=== PATIENT | male | born 1965 | race Caucasian/White ===

== ENCOUNTER 2017-12-26 12:35 | Observation (INO) | payer OTHER ==
--- NOTE | 2017-12-26 12:53 | PDOC ---
History of Present Illness - General Chief Complaint: Wheezing Stated Complaint: SOB Time Seen by Provider: 12/26/17 12:39 History Source: Patient Exam Limitations: No Limitations - History of Present Illness Initial Comments: 12/26/17 14:44 Mr. Bhatti is 52 yo M with a hx of HIV and DM presenting to the emergency department BIBA from his PCP with SOB with wheezing. He states he has had SOB, similar to his asthma exacerbations in the past (last one 3 months ago, 3 total this year) after he smoked marijuana Tuesday afternoon. He states he used his albuterol 4x yesterday with partial relief. En route, he was given 1 combivent and 10 mg dexamethasone. His last PCP visit was 1 month ago. Denies: fever, SOB , chest pain, throat pain, ear ache, abdominal pain, diarrhea, nausea and vomiting, and dysuria. Pmhx: HIV and asthma Shx: None Medications: HIV meds (unknown which ones to patient), albuterol Allergies: None Social: 1/4 pack per day, social drinker, and former IVDA 30 years ago. 12/26/17 14:46 Past History - Past Medical History Allergies/Adverse Reactions: Allergies Allergy/AdvReac Type Severity Reaction Status Date / Time No Known Allergies Allergy Verified 12/26/17 13:16 Home Medications: Ambulatory Orders Lactose-Reduced Food [Ensure Liquid] 237 ml PO TID #96 liquid 10/05/17 Albuterol 0.083% Nebulizer Kendal [Ventolin 0.083% Nebulizer Soln -] 1 neb NEB Q4H #1 box 10/19/17 Albuterol Sulfate [Ventolin -] 2 mg PO TID #21 tablet 10/19/17 Darunavir Ethanolate [Prezista -] 800 mg PO DAILY #30 tablet 10/19/17 Bacitracin - [Bacitracin Topical Ointment -] 1 applic TD BID #1 tube 11/16/17 Mirtazapine [Remeron -] 1 tablet PO HS #30 tablet MDD 1 12/08/17 Clotrimazole [Lotrimin 1% Cream -] 1 applic TP BID #1 tube 12/13/17 Diphenhydramine HCl [Benadryl -] 25 mg PO Q8H PRN #30 capsule MDD 3 12/13/17 Elviteg/Cob/Emtri/Tenof Alafen [Genvoya Tablet] 1 each PO DAILY #30 tablet 12/23 Anemia: No Asthma: Yes Cancer: No Cardiac Disorders: No CVA: No COPD: No CHF: No Dementia: No Diabetes: No GI Disorders: No Disorders: No HTN: No Hypercholesterolemia: No Kidney Stones: Yes (optd) Liver Disease: No Seizures: No Thyroid Disease: No - Surgical History Abdominal Surgery: No Appendectomy: No Cardiac Surgery: No Cholecystectomy: No Lung Surgery: No Neurologic Surgery: No Orthopedic Surgery: No - Reproductive History Testicular Surgery: No - Suicide/Smoking/Psychosocial Hx Smoking History: Current every day smoker Have you smoked in the past 12 months: Yes Number of Cigarettes Smoked Daily: 20 If you are a former smoker, when did you quit?: 10 Cigars Per Day: 0 Hx Alcohol Use: Yes Drug/Substance Use Hx: Yes Substance Use Type: Cocaine Hx Substance Use Treatment: Yes ED Treatment Course - LABORATORY CBC & Chemistry Diagram: 12/26/17 13:25 12/26/17 13:25 Medical Decision Making - Medical Decision Making 12/26/17 14:51 Mr. Bhatti is a 52 yo M with a hx of HIV and asthma who presents to the ED with asthma exacerbation. Given hx and PE, likely an asthma exacerbation etiology infectious vs reactive. Initial vitals: Initial Vital Signs Temp Pulse Resp BP Pulse Ox 98.4 F 67 18 113/90 98 12/26/17 12:40 12/26/17 12:40 12/26/17 12:40 12/26/17 12:40 12/26/17 12:40 Work up: Laboratory Results - last 24 hr 12/26/17 12/26/17 13:25 13:25 WBC 4.1 RBC 5.23 Hgb 15.2 Hct 45.8 MCV 87.6 MCH 29.0 MCHC 33.1 RDW 13.7 Plt Count 206 D MPV 8.0 Absolute Neuts (auto) 1.9 Neutrophils % 46.3 Lymphocytes % 40.4 H Monocytes % 7.0 Eosinophils % 5.6 H D Basophils % 0.7 Nucleated RBC % 0 Sodium 140 Potassium 4.8 D Chloride 109 H Carbon Dioxide 28 Anion Gap 3 L BUN 17 Creatinine 1.0 Creat Clearance w eGFR > 60 Random Glucose 101 D Calcium 8.6 Total Bilirubin 0.2 AST 29 ALT 32 D Alkaline Phosphatase 64 Total Protein 7.8 Albumin 3.7 Given 3 amps once of duoneb in the ED. O2 sat at 2:45 pm on 5 liters nasal canula is 93%. Total meds given up to this point (3pm): 1 combivent, 3 amps duoneb, 10 mg dexamethasone, magnesium 2grams. *DC/Admit/Observation/Transfer Diagnosis at time of Disposition: Asthma Qualifiers: Asthma severity: moderate Asthma persistence: unspecified Asthma complication type: with acute exacerbation Qualified Code(s): J45.901 - Unspecified asthma with (acute) exacerbation - Discharge Dispostion Decision to Admit order: Yes - Referrals Referrals: Jordyn Taylor MD [Primary Care Provider] - - Patient Instructions - Post Discharge Activity
[2017-12-26] MEDS ORDERED: ALBUTEROL SO4 2.5/IPRATROPIUM 0.5 INH SOL 3 ML VIAL.NEB. NEB ONE ×3 (13:16→16:22)
[2017-12-26] MEDS ORDERED: MAGNESIUM SULF 50% (8.12 MEQ/2 ML-1 GM VIAL) IVPB ONE (13:30)
[2017-12-26 13:32] LABS: BASO % 0.7 % (0-2.0); EOS % 5.6 % (0-4.5); HEMATOCRIT 45.8 % (35.4-49); HEMOGLOBIN 15.2 GM/dL (11.7-16.9); LYMPH % 40.4 % (8-40); MCHC 33.1 g/dl (32.0-35.9); MEAN CELL VOLUME 87.6 fl (80-96); NEUT % 46.3 % (42.8-82.8); PLATELET COUNT 206 K/MM3 (134-434); RBC 5.23 M/mm3 (4.00-5.60); RDW 13.7 % (11.9-15.9); WHITE BLOOD COUNT 4.1 K/mm3 (4.0-10.0)
[2017-12-26] MEDS ORDERED: MAGNESIUM 1GM/D5W - 2 GM/200 ML IVPB IVPB ONE (13:41)
[2017-12-26 14:07] LABS: ALBUMIN 3.7 g/dl (3.4-5.0); ALK PHOS 64 U/L (45-117); ANION GAP 3 (8-16); BILIRUBIN,TOTAL 0.2 mg/dL (0.2-1.0); BLOOD UREA NITROGEN 17 mg/dL (7-18); CALCIUM 8.6 mg/dL (8.5-10.1); CHLORIDE 109 mmol/L (98-107); CO2 28 mmol/L (21-32); GLUCOSE,RANDOM 101 mg/dL (74-106); POTASSIUM 4.8 mmol/L (3.5-5.1); SGOT/AST 29 U/L (15-37); SGPT/ALT 32 U/L (12-78); SODIUM 140 mmol/L (136-145); TOT PROT 7.8 g/dl (6.4-8.2)
--- NOTE | 2017-12-26 14:37 | PDOC ---
Attending Attestation - Resident Resident Name: PrincessRafa - ED Attending Attestation I have performed the following: I have examined & evaluated the patient, The case was reviewed & discussed with the resident, I agree w/resident's findings & plan, Exceptions are as noted - HPI HPI: 12/26/17 14:18 52 year old M c/ hx of HIV (reportedly undetectable VL), on medications, asthma (prior hospitalizations) presents with asthma exacerbation. Pt reported that he smoked marijuana 3 days ago (reportedly 1st time). Since then, he has been having difficulty breathing and wheezing but no fevers or cough. Denies chest pain. Pt saw his doctor who sent the patient to the ER. EMS had give duonebs and decadron prior to arrival. - Physicial Exam PE: 12/26/17 14:37 GENERAL: Awake, alert, and fully oriented, in no acute distress HEAD: No signs of trauma EYES: EOMI, sclera anicteric, conjunctiva clear ENT: Auricles normal inspection, hearing grossly normal, nares patent, oropharynx clear without exudates. Moist mucosa NECK: Normal ROM, supple LUNGS: Diffuse expiratory wheezing bilaterally and tight breath sounds HEART: Regular rate and rhythm, normal S1 and S2, no murmurs, rubs or gallops EXTREMITIES: Normal range of motion, no edema. No clubbing or cyanosis. No cords, erythema, or tenderness NEUROLOGICAL: Cranial nerves II through XII grossly intact. Normal speech, normal gait SKIN: Warm, Dry, normal turgor, no rashes or lesions noted. - Medical Decision Making 12/26/17 14:43 Vital Signs Temp Pulse Resp BP Pulse Ox 98.1 F 89 18 141/70 98 12/26/17 13:47 12/26/17 13:47 12/26/17 13:47 12/26/17 13:47 12/26/17 13:47 Hx of HIV with asthma exacerbation. Noted to have hypoxia on RA (to high 80s). Duonebs, steroids, IV magnesium. Chest xray to r/o PNA Admit. Heart Score/ECG Review #1 ECG reviewed & interpreted by me at: 12:50 12/26/17 14:17 NSR 59, no std/maria alejandra, normal axis, normal intervals, QTC 417 msec
[2017-12-26 15:22] LABS: MAGNESIUM 2.1 mg/dL (1.8-2.4)
--- NOTE | 2017-12-26 16:18 | HP ---
CHIEF COMPLAINT: sob, cough PCP: Dr. Smiley HISTORY OF PRESENT ILLNESS: Pt is a 52 y/o M with PMH asthma, HIV, IVDA who presented with complaint of sob and wheezing since Tue. Pt states that on Fri night he went to a alliance party and smoked some marijuana (pt states this is unusual for him) and snorted cocaine ( usually uses every 3 days or so), and since that time has had cough, sob. Cough is nonproductive and symptoms have been resistant to both his inhaler (normally uses 2-3 times per year) and home nebulizer. Pt went to see his PCP today. Per notes, PCP felt pt was significantly short of breath and was wheezing and sent him to ED. En route to ED, pt received Combivent, and decadron. In ED, pt got nebs and Magnesium, which pt states have helped him a lot. Pt denies having had fever, chills, nausea, vomiting, diarrhea, sick contacts, travel. Pt has never been intubated. His last asthma exacerbation was 4 months ago and he states he has been hospitalized for this before. He states he usually gets exacerbations roughly 3 times per year. Note that prior notes suggest PMH of DM. Pt states he was told once he might be diabetic but was later told he is not. He does not take any diabetes medications. ER course was notable for: (1) pt reportedly hypoxic to 88% prior to nebs and O2 nasal cannula. At 98% with treatment (2) CXR unremarkable (3) Recent Travel: denies PAST MEDICAL HISTORY: HIV, asthma PAST SURGICAL HISTORY: Social History: Smoking: active smoker. 3-4 cig / day x 20 years Alcohol: social drinker Drugs: active drug user. Cocaine ever 3 days (last use Tue), rarely marijuana. Hx IVDA 30 y/a Family History: denies Allergies No Known Allergies Allergy (Verified 12/26/17 13:16) HOME MEDICATIONS: Home Medications Medication Instructions Recorded Lactose-Reduced Food [Ensure 237 ml PO TID #96 liquid 10/05/17 Liquid] Albuterol 0.083% Nebulizer Kendal 1 neb NEB Q4H #1 box 10/19/17 [Ventolin 0.083% Nebulizer Soln -] Albuterol Sulfate [Ventolin -] 2 mg PO TID #21 tablet 10/19/17 Darunavir Ethanolate [Prezista -] 800 mg PO DAILY #30 tablet 10/19/17 Bacitracin - [Bacitracin Topical 1 applic TD BID #1 tube 11/16/17 Ointment -] Mirtazapine [Remeron -] 1 tablet PO HS #30 tablet MDD 1 12/08/17 Clotrimazole [Lotrimin 1% Cream -] 1 applic TP BID #1 tube 12/13/17 Diphenhydramine HCl [Benadryl -] 25 mg PO Q8H PRN #30 capsule MDD 3 12/13/17 Elviteg/Cob/Emtri/Tenof Alafen 1 each PO DAILY #30 tablet 12/23/17 [Genvoya Tablet] REVIEW OF SYSTEMS CONSTITUTIONAL: Absent: fever, chills, diaphoresis, generalized weakness, malaise, loss of appetite, weight change HEENT: Absent: rhinorrhea, nasal congestion, throat pain, throat swelling, difficulty swallowing, mouth swelling, ear pain, eye pain, visual changes CARDIOVASCULAR: Absent: chest pain, syncope, palpitations, irregular heart rate, lightheadedness , peripheral edema RESPIRATORY: cough, shortness of breath Absent: , dyspnea with exertion, orthopnea, wheezing, stridor, hemoptysis GASTROINTESTINAL: Absent: abdominal pain, abdominal distension, nausea, vomiting, diarrhea, constipation, melena, hematochezia GENITOURINARY: Absent: dysuria, frequency, urgency, hesitancy, hematuria, flank pain, genital pain MUSCULOSKELETAL: Absent: myalgia, arthralgia, joint swelling, back pain, neck pain SKIN: Absent: rash, itching, pallor HEMATOLOGIC/IMMUNOLOGIC: Absent: easy bleeding, easy bruising, lymphadenopathy, frequent infections ENDOCRINE: Absent: unexplained weight gain, unexplained weight loss, heat intolerance, cold intolerance NEUROLOGIC: Absent: headache, focal weakness or paresthesias, dizziness, unsteady gait, seizure, mental status changes, bladder or bowel incontinence PSYCHIATRIC: Absent: anxiety, depression, suicidal or homicidal ideation, hallucinations. PHYSICAL EXAMINATION Vital Signs - 24 hr 12/26/17 12/26/17 12:40 13:47 Temperature 98.4 F 98.1 F Pulse Rate 67 Pulse Rate [ 89 Apical] Respiratory 18 18 Rate Blood Pressure 113/90 Blood Pressure 141/70 [Right Arm] O2 Sat by Pulse 98 98 Oximetry (%) Gen: well-appearing in NAD. No resp distress HEENT: NCAT, moist membranes, partially adentulous Neck: supple, no jvd, no stridor Cardiac: rrr, normal s1s2, no m/r/g Pulm: diffuse coarse somewhat muffled breath sounds. No high-pitched wheezing appreciated. Abd: soft, nontender, + BS, no organomegally Ext: 2+ pulses, no edema Laboratory Results - last 24 hr 12/26/17 12/26/17 13:25 13:25 WBC 4.1 RBC 5.23 Hgb 15.2 Hct 45.8 MCV 87.6 MCH 29.0 MCHC 33.1 RDW 13.7 Plt Count 206 D MPV 8.0 Absolute Neuts (auto) 1.9 Neutrophils % 46.3 Lymphocytes % 40.4 H Monocytes % 7.0 Eosinophils % 5.6 H D Basophils % 0.7 Nucleated RBC % 0 Sodium 140 Potassium 4.8 D Chloride 109 H Carbon Dioxide 28 Anion Gap 3 L BUN 17 Creatinine 1.0 Creat Clearance w eGFR > 60 Random Glucose 101 D Calcium 8.6 Magnesium 2.1 Total Bilirubin 0.2 AST 29 ALT 32 D Alkaline Phosphatase 64 Total Protein 7.8 Albumin 3.7 ASSESSMENT/PLAN: Pt is a 52 y/o M with PMH HIV, IVDA, asthma presents to ED sent by PCP for SOB, wheeze. PE significant for coarse breath sounds throughout. Pt on Obs for asthma exacerbation. #Asthma exacerbation -trigger likely related to drug use on Tue night -active smoker. Counseled -?COPD component -Eosinophilia without leukocytosis -got nebs in ED -O2 to maintain SpO2>92 -nebs QID -methylprednisolone BID -peak flow -Pulm consult #HIV -per note from May, CD4 658, viral load > 5,000 -ID consult -pt follows at [facility]. States he is compliant with meds #Drug abuse -pt was counselled -has sought out detox/rehab in the past -recent cocaine use and marijuana on Tue -U tox #FEN -not on fluids -lytes wnl -reg diet #PPx -Hep SubQ #Dispo -Obs Jona Cummings MD PGY-2 IM Visit type - Emergency Visit Emergency Visit: Yes Care time: The patient presented to the Emergency Department on the above date and was hospitalized for further evaluation of their emergent condition. - New Patient This patient is new to me today: Yes Date on this admission: 12/26/17 - Critical Care Critical Care patient: No Hospitalist Screening - Colonoscopy Questionnaire Colonoscopy Questionnaire: Colonoscopy Questionnaire - Patient: 50 - 75 years old and never had a screening colonoscopy: Unknown History of colon or rectal polyps, or CA: Unknown History of IBD, Crohn's disease or UC: Unknown History of abdominal radiation therapy as a child: Unknown - Relative: 1 with colon or rectal CA, or polyps at age 60 or younger: Unknown Colon or rectal CA diagnosed at age 45 or younger: Unknown Multiple relatives with colon or rectal CA: Unknown - Outcome: Screening Result: Negative Screen
[2017-12-26] MEDS ORDERED: HEPARIN NA (PORCINE) 5,000 UNITS/ML 1ML VIAL ONE (16:22)
[2017-12-26] MEDS: ALBUTEROL SO4 2.5/IPRATROPIUM 0.5 INH SOL 3 ML VIAL.NEB. NEB SCH ×2 (16:35→22:45)
--- NOTE | 2017-12-26 16:47 | EKG ---
Test Reason : Blood Pressure : / mmHG Vent. Rate : 059 BPM Atrial Rate : 059 BPM P-R Int : 112 ms QRS Dur : 086 ms QT Int : 422 ms P-R-T Axes : 062 068 049 degrees QTc Int : 417 ms SINUS BRADYCARDIA OTHERWISE NORMAL ECG WHEN COMPARED WITH ECG OF 22-JUL-2016 09:41, NO SIGNIFICANT CHANGE WAS FOUND Confirmed by BUTCH COKER MD ([id number]) on 12/26/2017 4:47:06 PM Referred By: Confirmed By:BUTCH COKER MD
[2017-12-26 17:13] LABS: ARTERIAL BLD GAS O2 SATURATION 95.1 % (90-98.9); ARTERIAL BLOOD GAS BASE EXCESS -0.6 meq/l (-2-2); ARTERIAL BLOOD GAS PCO2 36.1 mmHg (35-45); ARTERIAL BLOOD GAS PO2 75.8 mmHg (80-100); ARTERIAL BLOOD GAS pH 7.42 (7.35-7.45); CARBOXYHEMOGLOBIN 1.3 gm% (0.5-2.0)
[2017-12-26 17:14] LABS: URINE AMPHETAMINES NEGATIVE ng/ml (CUTOFF=500)
[2017-12-26 17:14] LABS: ALLENS TEST POSITIVE
[2017-12-26 17:15] LABS: METHADONE, UR NEGATIVE ng/ml (CUTOFF=300); OPIATES, URI NEGATIVE ng/ml (CUTOFF=300); PHENCYCLIDINE,URINE NEGATIVE ng/ml (CUTOFF=25); URINE BARBITURATES NEGATIVE ng/ml (CUTOFF=200); URINE BENZODIAZEPINES NEGATIVE ng/ml (CUTOFF=200)
[2017-12-26 17:16] LABS: COCAINE, UR POSITIVE ng/ml (CUTOFF=300)
--- NOTE | 2017-12-26 17:46 | PN ---
Teaching Attending Note Name of Resident: Jona Cummings ATTENDING PHYSICIAN STATEMENT I saw and evaluated the patient. I reviewed the resident's note and discussed the case with the resident. I agree with the resident's findings and plan as documented with exceptions below. SUBJECTIVE: 52 yom with PMhx of HIV on HAART (last Viral load 5300's and CD4 500s in 05/2017) , Asthma vs COPD, last exacerbation few months ago, never intubated, active smoker, 3-4 cig/day for 20 years, h/o IVDU, actively snorts cocaine and uses marihuana, snorted cocaine few days ago, also had some marihuana. For the last 3 days, has been feeling progressively wheezy and short of breath, using his inhalers to no avail. So was seen by PCP today and sent to ED for further management. Patient received Decadron 10 mg IV enroute, also had nebs and mg 2 mg IV in the ED. Currently feels better . Denies any fevers, chills, cough or sputum, nausea, vomiting, abdominal or urinary symptoms, recent sick contacts travel or hospitalization. Drug use as above. 12 point ROS done, neg except above. OBJECTIVE: Vital Signs Period Temp Pulse Resp BP Sys/Morales Pulse Ox Last 24 Hr 98.1 F-98.4 F 67-89 18-18 113-141/64-90 97-98 Intake & Output 12/23/17 12/24/17 12/25/17 12/26/17 23:59 23:59 23:59 23:59 Weight 160 lb GENERAL: Awake, alert, and fully oriented, in mild respiratory distress, minimal use of acessory muscles, able to talk in full sentences HEAD: Normal with no signs of trauma. EYES: Pupils equal, round and reactive to light, extraocular movements intact, sclera anicteric, conjunctiva clear. No lid lag. EARS, NOSE, THROAT: Ears normal, nares patent, oropharynx clear without exudates. Moist mucous membranes. NECK: soft, supple, no JVD LUNGS: bilateral coarse expiratory wheezing, positive air entry, few right basilar rales. HEART: S1S2 regular ABDOMEN: Soft, nontender, not distended, normoactive bowel sounds, no guarding, no rebound, no masses. MUSCULOSKELETAL: Normal range of motion at all joints. No bony deformities or tenderness. No CVA tenderness. UPPER EXTREMITIES: 2+ pulses, warm, well-perfused. No cyanosis. No clubbing. No peripheral edema. LOWER EXTREMITIES: 2+ pulses, warm, well-perfused. No calf tenderness. No peripheral edema. NEUROLOGICAL: Cranial nerves II-XII intact. Normal speech. Gait deferred, facial symmetry, tongue midline, power 5/5 PSYCHIATRIC: Cooperative. Good eye contact. Appropriate mood and affect. SKIN: Warm, dry, normal turgor, no rashes or lesions noted, normal capillary refill. Home Medications Medication Instructions Recorded Lactose-Reduced Food [Ensure 237 ml PO TID #96 liquid 10/05/17 Liquid] Albuterol 0.083% Nebulizer Kendal 1 neb NEB Q4H #1 box 10/19/17 [Ventolin 0.083% Nebulizer Soln -] Albuterol Sulfate [Ventolin -] 2 mg PO TID #21 tablet 10/19/17 Elviteg/Cob/Emtri/Tenof Alafen 1 each PO DAILY #30 tablet 12/23/17 [Genvoya Tablet] Active Medications Albuterol/Ipratropium (Duoneb -) 1 amp NEB RQID JEWEL Last Admin: 12/26/17 16:35 Dose: 1 amp Azithromycin (Azithromycin) 500 mg PO DAILY JEWEL Stop: 12/28/17 10:01 Heparin Sodium (Porcine) (Heparin -) 5,000 unit SQ TID [facility] Methylprednisolone Sodium Succinate (Solu-Medrol -) 60 mg IVPB BID [facility] Laboratory Results - last 24 hr 12/26/17 12/26/17 12/26/17 13:25 13:25 16:39 WBC 4.1 RBC 5.23 Hgb 15.2 Hct 45.8 MCV 87.6 MCH 29.0 MCHC 33.1 RDW 13.7 Plt Count 206 D MPV 8.0 Absolute Neuts (auto) 1.9 Neutrophils % 46.3 Lymphocytes % 40.4 H Monocytes % 7.0 Eosinophils % 5.6 H D Basophils % 0.7 Nucleated RBC % 0 Anticoagulation Therapy Puncture Site ABG pH ABG pCO2 at Pt Temp ABG pO2 at Pt Temp ABG HCO3 ABG O2 Sat (Measured) ABG O2 Content ABG Base Excess Damian Test Carboxyhemoglobin Methemoglobin O2 Delivery Device Oxygen Flow Rate Vent Mode Vent Rate Mechanical Rate Pressure Support Vent Sodium 140 Potassium 4.8 D Chloride 109 H Carbon Dioxide 28 Anion Gap 3 L BUN 17 Creatinine 1.0 Creat Clearance w eGFR > 60 Random Glucose 101 D Calcium 8.6 Magnesium 2.1 Total Bilirubin 0.2 AST 29 ALT 32 D Alkaline Phosphatase 64 Total Protein 7.8 Albumin 3.7 Opiates Screen Negative Methadone Screen Negative Barbiturate Screen Negative Phencyclidine Screen Negative Ur Amphetamines Screen Negative MDMA (Ecstasy) Screen Negative Benzodiazepines Screen Negative Cocaine Screen Positive U Marijuana (THC) Screen Negative 12/26/17 16:58 WBC RBC Hgb Hct MCV MCH MCHC RDW Plt Count MPV Absolute Neuts (auto) Neutrophils % Lymphocytes % Monocytes % Eosinophils % Basophils % Nucleated RBC % Anticoagulation Therapy No Result Required. Puncture Site Right radial ABG pH 7.42 ABG pCO2 at Pt Temp 36.1 ABG pO2 at Pt Temp 75.8 L ABG HCO3 22.9 ABG O2 Sat (Measured) 95.1 ABG O2 Content 15.3 ABG Base Excess -0.6 Damian Test Positive Carboxyhemoglobin 1.3 Methemoglobin 1.4 O2 Delivery Device No Result Required. Oxygen Flow Rate 3 Vent Mode No Result Required. Vent Rate No Result Required. Mechanical Rate No Result Required. Pressure Support Vent No Result Required. Sodium Potassium Chloride Carbon Dioxide Anion Gap BUN Creatinine Creat Clearance w eGFR Random Glucose Calcium Magnesium Total Bilirubin AST ALT Alkaline Phosphatase Total Protein Albumin Opiates Screen Methadone Screen Barbiturate Screen Phencyclidine Screen Ur Amphetamines Screen MDMA (Ecstasy) Screen Benzodiazepines Screen Cocaine Screen U Marijuana (THC) Screen CXr - no acute process EKG NSR, no acute ST-T changes ASSESSMENT AND PLAN: 52 yom with PMHx of HIV on HAART, Asthma vs COPd, active smoker, h/o IVDU, comes with asthma exacerbation in the setting of recent cocaine/cannabis use. -Acute asthma/COPD excaerbation in the setting of recent cocaine/cannabis use, no s/s concerning for infection -Acute hypoxic respiratory distress from above. -HIV on HAART -Polysubstance use/dependence (nicotine/cannabis/Cocaine) Plan: Solumedrol 40 mg IV BID, standing and prn nebs. Azithromcyin short course. SYmbicort bid. Add singulair. Chest PT. Not seen pulmonary before. PUlmonary consult. COntinue HAART. ID consult with Dr. Yates Home oxygen needs assessment prior to d/c DVTPPX with lovenox Dispo admit to obs, d/c in 24-48 hours if continues to improve Plan discussed with patient in detail, all questions answered. Total admit time spent 55 min.
[2017-12-26] MEDS ORDERED: ALBUTEROL SO4 0.083% IH SOL 2.5 MG/3 ML VIAL.NEB. NEB PRN (17:49)
[2017-12-26] MEDS: AZITHROMYCIN 500 MG TABLET PO SCH (18:45)
[2017-12-26] MEDS ORDERED: AZITHROMYCIN 250 MG TABLET ONE (18:52)
[2017-12-26] MEDS ORDERED: HEPARIN NA (PORCINE) 5,000 UNITS/ML 1ML VIAL SQ SCH (22:00)
[2017-12-26] MEDS ORDERED: methylPREDNISolone NA SUCC 40 MG/1 ML VIAL IVPB SCH (22:00)
[2017-12-26] MEDS: methylPREDNISolone NA SUCC 40 MG/1 ML VIAL IVPB SCH (23:03)
[2017-12-26] MEDS: MONTELUKAST NA 10 MG TABLET PO SCH (23:03)
[2017-12-26] MEDS: BUDESONIDE/FORMETEROL FUMARATE 80/4.5 mcg INHALER IH SCH (23:04)
[2017-12-26 23:37] VITALS: BMI 22.6
[2017-12-27] MEDS: ALBUTEROL SO4 2.5/IPRATROPIUM 0.5 INH SOL 3 ML VIAL.NEB. NEB SCH ×4 (07:40→20:00)
[2017-12-27 08:09] LABS: BASO % 0.2 % (0-2.0); HEMATOCRIT 44.3 % (35.4-49); HEMOGLOBIN 14.8 GM/dL (11.7-16.9); LYMPH % 14.8 % (8-40); MCH 29.4 pg (25.7-33.7); MCHC 33.5 g/dl (32.0-35.9); MEAN CELL VOLUME 87.9 fl (80-96); MEAN PLT VOLUME 8.9 fl (7.5-11.1); MONO % 1.9 % (3.8-10.2); NEUT % 83.1 % (42.8-82.8); PLATELET COUNT 200 K/MM3 (134-434); RBC 5.04 M/mm3 (4.00-5.60); RDW 13.7 % (11.9-15.9); WHITE BLOOD COUNT 6.8 K/mm3 (4.0-10.0)
[2017-12-27 08:17] LABS: CHLORIDE 103 mmol/L (98-107); POTASSIUM 4.9 mmol/L (3.5-5.1); SODIUM 137 mmol/L (136-145)
[2017-12-27 08:34] LABS: ALBUMIN 3.5 g/dl (3.4-5.0); ALK PHOS 59 U/L (45-117); ANION GAP 8 (8-16); BILIRUBIN,TOTAL 0.1 mg/dL (0.2-1.0); BLOOD UREA NITROGEN 20 mg/dL (7-18); CALCIUM 9.2 mg/dL (8.5-10.1); CO2 26 mmol/L (21-32); GLUCOSE,RANDOM 194 mg/dL (74-106); MAGNESIUM 2.2 mg/dL (1.8-2.4); PHOSPHOROUS 3.8 mg/dL (2.5-4.9); SGOT/AST 24 U/L (15-37); SGPT/ALT 29 U/L (12-78); TOT PROT 7.7 g/dl (6.4-8.2)
[2017-12-27] MEDS: ENOXAPARIN NA (PORCINE) 40 MG/0.4 ML DISP.SYRIN SQ SCH (10:04)
[2017-12-27] MEDS: methylPREDNISolone NA SUCC 40 MG/1 ML VIAL IVPB SCH ×2 (10:04→22:27)
[2017-12-27] MEDS: BUDESONIDE/FORMETEROL FUMARATE 80/4.5 mcg INHALER IH SCH (10:04)
--- NOTE | 2017-12-27 11:13 | CON.PULM ---
Consult Consult Specialty:: PULM/CCM Referred by:: Hospitalist Reason for Consultation:: SOB - History of Present Illness Chief Complaint: SOB History of Present Illness: 52 M, reported past history of asthma (doubt true asthma), HIV, and illicit substance abuse (smokes crack/cocaine; occasional marijuana). Last use was Tuesday of marijuana. Reports using cocaine about 2 to 3 times per week. No travel history or sick contacts. No fever or chills. No hemoptysis or night sweats. CXR: no acute pathology - History Source History Provided By: Patient Limitations to Obtaining History: No Limitations - Past Medical History Pulmonary: Yes: Asthma, Bronchitis. No: Previously Intubated, Pulmonary Embolus , Sleep Apnea - Alcohol/Substance Use Hx Alcohol Use: Yes - Smoking History Smoking history: Current every day smoker Have you smoked in the past 12 months: Yes Aproximately how many cigarettes per day: 20 If you are a former smoker, when did you quit?: 10 Home Medications - Allergies Allergies/Adverse Reactions: Allergies Allergy/AdvReac Type Severity Reaction Status Date / Time No Known Allergies Allergy Verified 12/26/17 13:16 - Home Medications Home Medications: Ambulatory Orders Lactose-Reduced Food [Ensure Liquid] 237 ml PO TID #96 liquid 10/05/17 Albuterol 0.083% Nebulizer Kendal [Ventolin 0.083% Nebulizer Soln -] 1 neb NEB Q4H #1 box 10/19/17 Albuterol Sulfate [Ventolin -] 2 mg PO TID #21 tablet 10/19/17 Elviteg/Cob/Emtri/Tenof Alafen [Genvoya Tablet] 1 each PO DAILY #30 tablet 12/23 Darunavir Ethanolate [Prezista] 800 mg PO DAILY 12/26/17 Family Disease History - Family Disease History Family Disease History: Diabetes: Mother (mother - d. JOAQUÍN, age approx 65), Heart Disease: Mother Review of Systems - Review of Systems Constitutional: denies: Chills, Fever, Night Sweats, Unintentional Wgt. Loss Eyes: reports: No Symptoms HENT: reports: No Symptoms Neck: reports: No Symptoms Cardiovascular: reports: Shortness of Breath. denies: Chest Pain, Edema, Palpitations Respiratory: reports: Cough, SOB, SOB on Exertion, Wheezing. denies: Exercise Intolerance, Hemoptysis, Orthopnea, Snoring Gastrointestinal: reports: No Symptoms Genitourinary: reports: No Symptoms Breasts: reports: No Symptoms Reported Musculoskeletal: reports: No Symptoms Integumentary: reports: No Symptoms Neurological: reports: No Symptoms Endocrine: reports: No Symptoms Hematology/Lymphatic: reports: No Symptoms Psychiatric: reports: No Symptoms Physical Exam Vital Sings: Vital Signs Temperature 98.2 F 12/27/17 08:00 Pulse Rate 82 12/27/17 08:00 Respiratory Rate 18 12/27/17 08:00 Blood Pressure 130/78 12/27/17 08:00 O2 Sat by Pulse Oximetry (%) 98 12/27/17 06:17 Constitutional: Yes: No Distress, Calm Eyes: Yes: Conjunctiva Clear, EOM Intact HENT: Yes: Atraumatic, Normocephalic Neck: Yes: Supple, Trachea Midline Cardiovascular: Yes: Regular Rate and Rhythm Respiratory: Yes: Cough, Wheezes. No: Accessory Muscle Use, Rales, Rhonchi, Stridor, Tachypnea ...Inspection: Yes: WNL ...Clubbing: No Gastrointestinal: Yes: WNL, Normal Bowel Sounds, Soft Renal/: Yes: WNL Musculoskeletal: Yes: WNL Extremities: Yes: WNL Edema: No Peripheral Pulses WNL: Yes Integumentary: Yes: WNL Neurological: Yes: WNL, Alert, Oriented ...Motor Strength: WNL Psychiatric: Yes: WNL, Alert, Oriented Labs: CBC, BMP 12/27/17 06:00 12/27/17 06:00 ABG Results ABG pH 7.42 (7.35-7.45) 12/26/17 16:58 ABG pCO2 at Pt Temp 36.1 mmHg (35-45) 12/26/17 16:58 ABG pO2 at Pt Temp 75.8 mmHg (80-100) L 12/26/17 16:58 ABG HCO3 22.9 meq/L (22-26) 12/26/17 16:58 ABG O2 Sat (Measured) 95.1 % (90-98.9) 12/26/17 16:58 ABG O2 Content 15.3 % vol (15-22) 12/26/17 16:58 ABG Base Excess -0.6 meq/l (-2-2) 12/26/17 16:58 Imaging - Results Chest X-ray: Report Reviewed, Image Reviewed Problem List - Problems (1) Asthmatic bronchitis with acute exacerbation Code(s): J45.901 - UNSPECIFIED ASTHMA WITH (ACUTE) EXACERBATION (2) HIV (human immunodeficiency virus infection) Code(s): Z21 - ASYMPTOMATIC HUMAN IMMUNODEFICIENCY VIRUS INFECTION STATUS (3) Cough Code(s): R05 - COUGH (4) Cocaine abuse, episodic use Code(s): F14.10 - COCAINE ABUSE, UNCOMPLICATED (5) Tobacco use disorder Code(s): Z72.0 - TOBACCO USE Assessment/Plan IMP: Cocaine induced bronchospasm Lung exposure to volatile combustion products Likely exposure to associated substances: talc, silica, lactose No evidence of infectious process PLAN: Medrol BD TX Agree with Symbicort, but dose should be 160/4.5, 2 inhalations BID Can add LAMA Singulair Should have outpatient PFTs I counseled about smoking tobacco and illicit substance abuse Can attempt to change to Prednisone course in the next 24 hours if he feels clinically improved Monitor off ABX VTE prophylaxis Dr Wasserman
--- NOTE | 2017-12-27 11:45 | PN ---
Physical Exam: SUBJECTIVE: Patient seen and examined at bedside. OBJECTIVE: Vital Signs Period Temp Pulse Resp BP Sys/Morales Pulse Ox Last 24 Hr 97.9 F-98.4 F 65-89 18-20 113-141/64-90 97-98 GENERAL: The patient is awake, alert, and fully oriented, in no acute distress. LUNGS: Diffuse wheezing HEART: Regular rate and rhythm, S1, S2 ABDOMEN: Soft, nontender EXTREMITIES: 2+ pulses, warm, well-perfused, no edema. NEUROLOGICAL: Cranial nerves II through XII grossly intact. Normal speech Laboratory Results - last 24 hr 12/26/17 12/26/17 12/26/17 13:25 13:25 16:39 WBC 4.1 RBC 5.23 Hgb 15.2 Hct 45.8 MCV 87.6 MCH 29.0 MCHC 33.1 RDW 13.7 Plt Count 206 D MPV 8.0 Absolute Neuts (auto) 1.9 Neutrophils % 46.3 Lymphocytes % 40.4 H Monocytes % 7.0 Eosinophils % 5.6 H D Basophils % 0.7 Nucleated RBC % 0 Anticoagulation Therapy Puncture Site ABG pH ABG pCO2 at Pt Temp ABG pO2 at Pt Temp ABG HCO3 ABG O2 Sat (Measured) ABG O2 Content ABG Base Excess Damian Test Carboxyhemoglobin Methemoglobin O2 Delivery Device Oxygen Flow Rate Vent Mode Vent Rate Mechanical Rate Pressure Support Vent Sodium 140 Potassium 4.8 D Chloride 109 H Carbon Dioxide 28 Anion Gap 3 L BUN 17 Creatinine 1.0 Creat Clearance w eGFR > 60 Random Glucose 101 D Calcium 8.6 Phosphorus Magnesium 2.1 Total Bilirubin 0.2 AST 29 ALT 32 D Alkaline Phosphatase 64 Total Protein 7.8 Albumin 3.7 Opiates Screen Negative Methadone Screen Negative Barbiturate Screen Negative Phencyclidine Screen Negative Ur Amphetamines Screen Negative MDMA (Ecstasy) Screen Negative Benzodiazepines Screen Negative Cocaine Screen Positive U Marijuana (THC) Screen Negative 12/26/17 12/27/17 12/27/17 16:58 06:00 06:00 WBC 6.8 RBC 5.04 Hgb 14.8 Hct 44.3 MCV 87.9 MCH 29.4 MCHC 33.5 RDW 13.7 Plt Count 200 MPV 8.9 D Absolute Neuts (auto) 5.6 Neutrophils % 83.1 H D Lymphocytes % 14.8 D Monocytes % 1.9 L Eosinophils % 0.0 D Basophils % 0.2 Nucleated RBC % 0 Anticoagulation Therapy No Result Required. Puncture Site Right radial ABG pH 7.42 ABG pCO2 at Pt Temp 36.1 ABG pO2 at Pt Temp 75.8 L ABG HCO3 22.9 ABG O2 Sat (Measured) 95.1 ABG O2 Content 15.3 ABG Base Excess -0.6 Damian Test Positive Carboxyhemoglobin 1.3 Methemoglobin 1.4 O2 Delivery Device No Result Required. Oxygen Flow Rate 3 Vent Mode No Result Required. Vent Rate No Result Required. Mechanical Rate No Result Required. Pressure Support Vent No Result Required. Sodium 137 Potassium 4.9 Chloride 103 Carbon Dioxide 26 Anion Gap 8 BUN 20 H Creatinine 1.0 Creat Clearance w eGFR > 60 Random Glucose 194 H D Calcium 9.2 Phosphorus 3.8 Magnesium 2.2 Total Bilirubin 0.1 L AST 24 ALT 29 Alkaline Phosphatase 59 Total Protein 7.7 Albumin 3.5 Opiates Screen Methadone Screen Barbiturate Screen Phencyclidine Screen Ur Amphetamines Screen MDMA (Ecstasy) Screen Benzodiazepines Screen Cocaine Screen U Marijuana (THC) Screen Active Medications Generic Name Dose Route Start Last Admin Trade Name Freq PRN Reason Stop Dose Admin Albuterol Sulfate 1 amp 12/26/17 17:49 Ventolin 0.083% Nebulizer Soln - NEB Q3H PRN SHORT OF BREATH/WHEEZING Albuterol/Ipratropium 1 amp 12/26/17 16:00 12/27/17 11:38 Duoneb - NEB 1 amp RQID JEWEL Administration Azithromycin 500 mg 12/26/17 17:45 12/26/17 18:45 Azithromycin PO 12/28/17 10:01 500 mg DAILY JEWEL Administration Budesonide/Formoterol Fumarate 2 puff 12/26/17 22:00 12/27/17 10:04 Symbicort 80/4.5mcg - IH 2 puff BID JEWEL Administration Enoxaparin Sodium 40 mg 12/27/17 10:00 12/27/17 10:04 Lovenox - SQ 40 mg DAILY JEWEL Administration Methylprednisolone Sodium Succinate 40 mg 12/26/17 22:00 12/27/17 10:04 Solu-Medrol - IVPB 40 mg BID JEWEL Administration Montelukast Sodium 10 mg 12/26/17 22:00 12/26/17 23:03 Singulair - PO 10 mg HS JEWEL Administration ASSESSMENT/PLAN: 52 year-old male with a PMH significant for asthma, HIV, polysubstance abuse ( crack/cocaine, marijuana) and NIDDM. Placed on observation for cocaine-induced bronchospasm. Cocaine-induced bronchospasm --seen and evaluated by pulm, doubt patient has a history of true asthma --still with diffuse wheezing --continue duonebs --increased dosage of Symbicort to 160/4.5, 2 inhalations BID --added Spiriva (LAMA) --continue IV steroids --monitor off antibiotics HIV --per note from May, CD4 658, viral load > 5,000 --on HAART, can take home meds --ID consult --follows at [facility]; says he is compliant Polysubstance abuse --Utox positive for cocaine FEN Fluids: PO intake adequate Electrolytes: replete as indicated Nutrition: regular diet DVT prophylaxis: subq lovenox Dispo: continues to require observation. Full code. Visit type - Emergency Visit Emergency Visit: Yes ED Registration Date: 12/26/17 Care time: The patient presented to the Emergency Department on the above date and was hospitalized for further evaluation of their emergent condition. - New Patient This patient is new to me today: Yes Date on this admission: 12/27/17 - Critical Care Critical Care patient: No
[2017-12-27] MEDS: TIOTROPIUM BROMIDE (SPIRIVA) RESPIMAT INHALER IH SCH (14:33)
--- NOTE | 2017-12-27 15:05 | PN ---
Progress Note (short form) - Note Progress Note: ID consult dictated imp/reccd 52 year old man with HIV and asthma, cocaine and marijuana use admitted with asthma exacerbation asthma management per Hospitalist service asymptomatic HIV cd4 greater then 500, viral load 1999 substance use his meds are not available in the hospital- can resume as outpt- [facility] and [facility]ann[facility] thanks Problem List - Problems (1) Asthmatic bronchitis with acute exacerbation Code(s): J45.901 - UNSPECIFIED ASTHMA WITH (ACUTE) EXACERBATION (2) HIV (human immunodeficiency virus infection) Code(s): Z21 - ASYMPTOMATIC HUMAN IMMUNODEFICIENCY VIRUS INFECTION STATUS (3) Cocaine abuse, episodic use Code(s): F14.10 - COCAINE ABUSE, UNCOMPLICATED
[2017-12-27] MEDS ORDERED: PT OWN MED DRAWER 7, Y5N ONE (22:15)
[2017-12-27] MEDS: MONTELUKAST NA 10 MG TABLET PO SCH (22:27)
[2017-12-27] MEDS: BUDESONIDE/FORMETEROL FUMARATE 160/4.5 mcg INHALER IH SCH (22:27)
[2017-12-28] MEDS: ALBUTEROL SO4 2.5/IPRATROPIUM 0.5 INH SOL 3 ML VIAL.NEB. NEB SCH ×2 (07:40→11:17)
--- NOTE | 2017-12-28 09:43 | CONS ---
DATE OF CONSULTATION: 12/27/2017 HISTORY OF PRESENT ILLNESS: This is a 52-year-old man who is followed at the [facility]. He presented on the to the clinic with complaints of cough and wheezing. He had no fevers or chills. He received a nebulizer treatment there with no real improvement and was sent to the emergency room for further evaluation. In the ER, he was admitted for an asthma exacerbation, and I am asked to see him regarding his HIV care. He reports he went to a constitution party on Tuesday. He smoked some marijuana and snorted some cocaine, and since that time, he has been having cough and shortness of breath. He has no fever, chills, nausea, vomiting, diarrhea. Reports improvement. Regarding his asthma, he has never been intubated. He has no history of recent travel. PAST MEDICAL HISTORY: Notable for he has a history of HIV, he has a history of asthma, he has a history of substance use mainly crack cocaine occasional marijuana, and he has had nephrolithiasis in the past. FAMILY HISTORY: Notable for diabetes in his mother and heart disease in his mother. ALLERGIES: He has no known drug allergies. MEDICATIONS: As an outpatient include Genvoya, Prezista, Ensure, Ventolin inhaler and Ventolin nebulizer. SOCIAL HISTORY: He is an active cigarette smoker and crack cocaine user, occasional alcohol, occasional marijuana. There is no history of injection drug use. He denies any history of tuberculosis. He is hepatitis C antibody positive with undetectable viral load. His last viral load for HIV was 2310, and his T cells have consistently been over 600 for several years. Most recent CD4 count in September was 500, which was when his viral load was 2000. REVIEW OF SYSTEMS: He reports feeling better. He has not had any hemoptysis. There have been no sick contacts. He has no diarrhea. PHYSICAL EXAMINATION: General: He is awake and alert. Vital signs: He is afebrile. Temperature was 98.2, pulse of 82, blood pressure 131/74, respiratory rate of 20. HEENT: He is normocephalic. His eyes are anicteric. He has no thrush. Neck: Supple. Lungs: Have scattered rhonchi and wheezes. Heart: Regular rate and rhythm. Abdomen: Soft, nontender. Extremities: Without edema. DIAGNOSTIC DATA: Labs are notable for a white count of 6.8, hemoglobin 14.8, platelets are 200. Chemistries were notable for glucose of 194, otherwise normal. Urine toxicology was positive for cocaine. As reported, his last T cell count from October 05 was 500 with a viral load of 2310. He had a QuantiFERON done in the clinic on October 05 as well that was negative. SUMMARY: This is a 52-year-old man with stable human immunodeficiency virus disease, substance use, admitted for asthma exacerbation. I would continue treating him for his asthma as per the hospitalist service. He appears to be rapidly improving. Unfortunately, his medications are not available in the hospital. I spoke with the patient. I suspect he will be ready for discharge in the next 24-48 hours and can resume his medications as an outpatient with followup at the [facility]. Please call back if needed. MICHELLE BOWEN M.D. [id number]
--- NOTE | 2017-12-28 09:48 | PN ---
Progress Note (short form) - Note Progress Note: Reports feeling better today. Feels close to his baseline. Constitutional: Yes: No Distress, Calm Eyes: Yes: Conjunctiva Clear, EOM Intact HENT: Yes: Atraumatic, Normocephalic Neck: Yes: Supple, Trachea Midline Cardiovascular: Yes: Regular Rate and Rhythm Respiratory: Yes: Scattered Rhonchi, Cough. No: Accessory Muscle Use, Rales, Stridor, Tachypnea ...Inspection: Yes: WNL ...Clubbing: No Gastrointestinal: Yes: WNL, Normal Bowel Sounds, Soft Renal/: Yes: WNL Musculoskeletal: Yes: WNL Extremities: Yes: WNL Edema: No Peripheral Pulses WNL: Yes Integumentary: Yes: WNL Neurological: Yes: WNL, Alert, Oriented ...Motor Strength: WNL Psychiatric: Yes: WNL, Alert, Oriented Labs: Problem List - Problems (1) Asthmatic bronchitis with acute exacerbation Code(s): J45.901 - UNSPECIFIED ASTHMA WITH (ACUTE) EXACERBATION (2) HIV (human immunodeficiency virus infection) Code(s): Z21 - ASYMPTOMATIC HUMAN IMMUNODEFICIENCY VIRUS INFECTION STATUS (3) Cough Code(s): R05 - COUGH (4) Cocaine abuse, episodic use Code(s): F14.10 - COCAINE ABUSE, UNCOMPLICATED (5) Tobacco use disorder Code(s): Z72.0 - TOBACCO USE Assessment/Plan IMP: Cocaine induced bronchospasm Lung exposure to volatile combustion products Likely exposure to associated substances: talc, silica, lactose No evidence of infectious process PLAN: Prednisone 40mg PO OD x 5 days Agree with Symbicort, but dose should be 160/4.5, 2 inhalations BID Add LAMA Singulair Should have outpatient PFTs I again counseled about smoking tobacco and illicit substance abuse No ABX indicated No Pulmonary contraindication for D/C home today Dr Wasserman Problem List - Problems (1) Asthmatic bronchitis with acute exacerbation Code(s): J45.901 - UNSPECIFIED ASTHMA WITH (ACUTE) EXACERBATION (2) HIV (human immunodeficiency virus infection) Code(s): Z21 - ASYMPTOMATIC HUMAN IMMUNODEFICIENCY VIRUS INFECTION STATUS (3) Cough Code(s): R05 - COUGH (4) Cocaine abuse, episodic use Code(s): F14.10 - COCAINE ABUSE, UNCOMPLICATED (5) Tobacco use disorder Code(s): Z72.0 - TOBACCO USE
[2017-12-28] MEDS ORDERED: PT OWN MED DRAWER 7, Y5N ONE (10:08)
[2017-12-28] MEDS: BUDESONIDE/FORMETEROL FUMARATE 160/4.5 mcg INHALER IH SCH (10:10)
[2017-12-28] MEDS: TIOTROPIUM BROMIDE (SPIRIVA) RESPIMAT INHALER IH SCH (10:10)
[2017-12-28] MEDS: ENOXAPARIN NA (PORCINE) 40 MG/0.4 ML DISP.SYRIN SQ SCH (10:10)
[2017-12-28] MEDS: AZITHROMYCIN 500 MG TABLET PO SCH (10:10)
[2017-12-28] MEDS: methylPREDNISolone NA SUCC 40 MG/1 ML VIAL IVPB SCH (10:10)
--- NOTE | 2017-12-28 10:13 | DS ---
Physical Exam: SUBJECTIVE: Patient seen and examined OBJECTIVE: Vital Signs Period Temp Pulse Resp BP Sys/Morales Pulse Ox Last 24 Hr 98.1 F-98.4 F 78-85 18-20 110-131/68-89 96-96 PHYSICAL EXAM GENERAL: The patient is awake, alert, and fully oriented, in no acute distress. HEAD: Normal with no signs of trauma. EYES: PERRL, extraocular movements intact, sclera anicteric, conjunctiva clear. ENT: Ears normal, nares patent, oropharynx clear without exudates, moist mucous membranes. NECK: Trachea midline, full range of motion, supple. LUNGS: Breath sounds equal, clear to auscultation bilaterally, no wheezes, no crackles, no accessory muscle use. HEART: Regular rate and rhythm, S1, S2 without murmur, rub or gallop. ABDOMEN: Soft, nontender, nondistended, normoactive bowel sounds, no guarding, no rebound, no hepatosplenomegaly, no masses. EXTREMITIES: 2+ pulses, warm, well-perfused, no edema. NEUROLOGICAL: Cranial nerves II through XII grossly intact. Normal speech, gait not observed. PSYCH: Normal mood, normal affect. SKIN: Warm, dry, normal turgor, no rashes or lesions noted. LABS HOSPITAL COURSE: Date of Admission:12/26/17 Date of Discharge: 12/28/17 Minutes to complete discharge: 35 Discharge Summary Reason For Visit: ASTHMA Current Active Problems Asthmatic bronchitis with acute exacerbation (Acute) Asthma (Chronic) HIV (human immunodeficiency virus infection) (Chronic) Condition: Improved - Instructions Diet, Activity, Other Instructions: A prescription has been sent to your pharmacy for prednisone. Take this medication as directed and be sure to finish all the medication. Return to the emergency department for any new or worsening symptoms. Referrals: Jordyn Taylor MD [Primary Care Provider] - Disposition: HOME - Home Medications Comprehensive Discharge Medication List: Ambulatory Orders Lactose-Reduced Food [Ensure Liquid] 237 ml PO TID #96 liquid 10/05/17 Albuterol 0.083% Nebulizer Kendal [Ventolin 0.083% Nebulizer Soln -] 1 neb NEB Q4H #1 box 10/19/17 Albuterol Sulfate [Ventolin -] 2 mg PO TID #21 tablet 10/19/17 Elviteg/Cob/Emtri/Tenof Alafen [Genvoya Tablet] 1 each PO DAILY #30 tablet 12/23 Darunavir Ethanolate [Prezista] 800 mg PO DAILY 12/26/17 Prednisone See Taper PO ASDIR #21 tablet 12/28/17
[2017-12-28 10:18] VITALS: BP 127/84; PULSE 78; TEMP 98.3
== END 2017-12-28 12:28 | disposition home or self-care (01) ==
LOC: JER 12:35 → JERBED 15:04 → J7W 21:44
PROVIDERS: ADMIT Hospitalist; ATTEND Nurse Practitioner Acute Care
PROC: 3E0333Z Introduction of Anti-inflammatory into Peripheral Vein, Percutaneous Approach (ICD-10-PCS; principal; 2017-12-26)
PROC: 3E013GC Introduction of Other Therapeutic Substance into Subcutaneous Tissue, Percutaneous Approach (ICD-10-PCS; 2017-12-26)
PROC: 3E0F7GC Introduction of Other Therapeutic Substance into Respiratory Tract, Via Natural or Artificial Opening (ICD-10-PCS; 2017-12-26)
DX: J45.901 Unspecified asthma with (acute) exacerbation (principal); F14.188 Cocaine abuse with other cocaine-induced disorder; Z21 Asymptomatic human immunodeficiency virus [HIV] infection status; F17.210 Nicotine dependence, cigarettes, uncomplicated; F12.10 Cannabis abuse, uncomplicated; R05 Cough
CPT/HCPCS: 36415; 36600; 71045-TC-FY; 80053; 80307; 82375; 82803; 83050; 83735; 84100; 85025; 93005; 93010; 94150; 94640; 96372; 96374; 99285-25; G0378; J7620

== ENCOUNTER → 2019-01-24 | Outpatient (CLI) | payer OTHER | LOC: YHH 11:31 ==

== ENCOUNTER 2019-05-08 11:11 | Emergency (ER) | payer OTHER ==
[2019-05-08 11:24] VITALS: BMI 24.2
--- NOTE | 2019-05-08 11:46 | PDOC ---
History of Present Illness - General Chief Complaint: Shortness of Breath Stated Complaint: R/O PNEUMONIA Time Seen by Provider: 05/08/19 11:40 History Source: Patient - History of Present Illness Initial Comments: 05/10/19 10:52 Mr. Bhatti is a 53 y/o man w/hx HIV, asthma p/w three days of shortness of breath, chills, subjective fevers. He reports that he presented to his PCP for a regular follow up today, and that she noted that he appeared more out of breath than usual and encouraged him to seek evaluation in the ED. He reports that for approx the last 3 days he has had cough, chills, shortness of breath, and that he has had increasing use of his rescue inhalers with no relief of his symptoms. He denies any chest pain, fatigue, dyspnea on exertion. Past History - Past Medical History Allergies/Adverse Reactions: Allergies Allergy/AdvReac Type Severity Reaction Status Date / Time No Known Allergies Allergy Verified 05/08/19 11:14 Home Medications: Ambulatory Orders Lactose-Reduced Food [Ensure Liquid] 1 can PO TID #90 liquid 12/29/18 Budesonide/Formeterol Fumarate [SYMBICORT 160/4.5mcg -] 2 puff IH BID #1 inhaler 01/19/19 Darunavir Ethanolate [Prezista -] 1 tab PO DAILY #30 tablet 01/19/19 Elviteg/Cob/Emtri/Tenof Alafen [Genvoya (Non-Formulary)] 1 tab PO DAILY #30 tablet 01/19/19 Ketoconazole 2% Cream [Nizoral 2% Cream -] 1 applic TP DAILY #1 tube 04/03/19 Mirtazapine [Remeron -] 1 tablet PO HS #30 tablet 04/12/19 traZODone HCL [Trazodone HCl] 100 mg PO HS #30 tablet 04/12/19 Albuterol 0.083% Nebulizer Kendal [Ventolin 0.083% Nebulizer Soln -] 1 - 2 neb NEB Q6H PRN #120 vial 04/16/19 Albuterol Sulfate Inhaler - [Ventolin HFA Inhaler -] 1 - 2 inh PO QID #1 inhaler 04/16/19 Fluticasone/Salmeterol [Advair 250-50 Diskus] 1 each IH BID #1 blst.w.dev Hydrocortisone 2.5% Lotion [Hytone 2.5% Lotion -] 1 applic TD BID #1 bottle Tiotropium Renner [Spiriva Respimat] 2 puff IH DAILY #1 inhaler 04/16/19 Albuterol Sulfate Inhaler - [Ventolin Hfa Inhaler -] 1 - 2 inh PO QID #1 inhaler 05/08/19 Prednisone [Prednisone 50 MG TABLETS] 50 mg PO DAILY 5 Days #5 tablet 05/08/19 Anemia: No Asthma: Yes Cancer: No Cardiac Disorders: No CVA: No COPD: Yes CHF: No Dementia: No Diabetes: No GI Disorders: No Disorders: No HTN: No Hypercholesterolemia: No Kidney Stones: Yes (optd) Liver Disease: No Seizures: No Thyroid Disease: No - Surgical History Abdominal Surgery: No Appendectomy: No Cardiac Surgery: No Cholecystectomy: No Lung Surgery: No Neurologic Surgery: No Orthopedic Surgery: No - Reproductive History Testicular Surgery: No - Psycho Social/Smoking Cessation Hx Smoking History: Unknown if ever smoked Have you smoked in the past 12 months: Yes Number of Cigarettes Smoked Daily: 20 If you are a former smoker, when did you quit?: 10 Cigars Per Day: 0 'Breaking Loose' booklet given: 12/26/17 Hx Alcohol Use: Yes Drug/Substance Use Hx: Yes Substance Use Type: Cocaine Hx Substance Use Treatment: Yes Review of Systems - Review of Systems Able to Perform ROS?: Yes Comments:: 05/10/19 10:47 ROS: GENERAL/CONSTITUTIONAL: No fever or chills. No weakness. HEAD, EYES, EARS, NOSE AND THROAT: No change in vision. No ear pain or discharge. No sore throat. CARDIOVASCULAR: No chest pain RESPIRATORY: Shortness of breath, wheezing. No cough, or hemoptysis. GASTROINTESTINAL: No nausea, vomiting, diarrhea or constipation. GENITOURINARY: No dysuria, frequency, or change in urination. MUSCULOSKELETAL: No joint or muscle swelling or pain. No neck or back pain. SKIN: No rash NEUROLOGIC: No headache, vertigo, loss of consciousness, or change in strength/ sensation. ENDOCRINE: No increased thirst. No abnormal weight change HEMATOLOGIC/LYMPHATIC: No anemia, easy bleeding, or history of blood clots. ALLERGIC/IMMUNOLOGIC: No hives or skin allergy. *Physical Exam - Vital Signs Last Vital Signs Temp Pulse Resp BP Pulse Ox 99 F 85 18 138/80 05/08/19 11:17 05/08/19 11:17 05/08/19 11:17 05/08/19 11:17 - Physical Exam 05/10/19 10:46 PE: GENERAL: Awake, alert, and fully oriented, in no acute distress HEAD: No signs of trauma, normocephalic, atraumatic EYES: PERRLA, EOMI, sclera anicteric, conjunctiva clear ENT: Auricles normal inspection, hearing grossly normal, nares patent, oropharynx clear without exudates. Moist mucosa NECK: Normal ROM, supple, no lymphadenopathy, JVD, or masses LUNGS: Minimal breath sounds. No distress, speaks full sentences HEART: Regular rate and rhythm, normal S1 and S2, no murmurs, rubs or gallops, peripheral pulses normal and equal bilaterally. ABDOMEN: Soft, nontender, normoactive bowel sounds. No guarding, no rebound. No masses EXTREMITIES : Normal inspection, Normal range of motion, no edema. No clubbing or cyanosis NEUROLOGICAL: Cranial nerves II through XII grossly intact. Normal speech, normal gait, no focal sensorimotor deficits SKIN: Warm, Dry, normal turgor, no rashes or lesions noted ED Treatment Course - LABORATORY CBC & Chemistry Diagram: 05/08/19 13:35 05/08/19 13:35 Medical Decision Making - Medical Decision Making 53M w/hx HIV, asthma p/w 3 days SOB with increased rescue inhaler use today, sent by PCP for further evaluation, c/w asthma exacerbation vs pneumonia. Plan: CBC CMP CXR EKG Troponin Duoneb x3 Dispo: Pending labs, reassessment --- On reassessment after completion of x2 duonebs, significantly improved air movement to bilateral lungs. Minimal wheezing noted at bases. Plan for third duoneb, reassessment. 05/08/19 16:41 On reassessment, O2% 100% on room air Ambulatory O2% - stable at 100% CXR - negative Plan for discharge home with close PCP follow up Discharge - Discharge Information Problems reviewed: Yes Clinical Impression/Diagnosis: Asthma Qualifiers: Asthma severity: unspecified severity Asthma persistence: unspecified Asthma complication type: uncomplicated Qualified Code(s): J45.909 - Unspecified asthma , uncomplicated Condition: Stable Disposition: HOME - Admission No - Additional Discharge Information Prescriptions: Albuterol Sulfate Inhaler - [Ventolin Hfa Inhaler -] 1 - 2 inh PO QID #1 inhaler Prednisone [Prednisone 50 MG TABLETS] 50 mg PO DAILY 5 Days #5 tablet - Follow up/Referral Referrals: Jordyn Taylor MD [Primary Care Provider] - - Patient Discharge Instructions Patient Printed Discharge Instructions: DI for Asthma -- Adult Additional Instructions: You were seen in the ER for shortness of breath. Your labs were normal. Your x ray of your chest was normal. We gave you 3 breathing treatments and your oxygen level was normal. We are prescribing you 5 days of a steroid to help with your breathing. Please take the steroid once every day, with food. Follow up with your primary doctor within 1-2 days for further evaluation. Please return to the ER if you have any new, worsening, or concerning symptoms - Post Discharge Activity
[2019-05-08] MEDS ORDERED: ALBUTEROL SO4 2.5/IPRATROPIUM 0.5 INH SOL 3 ML VIAL.NEB. NEB ONE ×3 (13:13→14:52)
[2019-05-08] MEDS ORDERED: methylPREDNISolone NA SUCC 125 MG/2 ML VIAL IVPUSH ONE (13:43)
[2019-05-08 13:44] LABS: BASO % 0.6 % (0-2.0); EOS % 0.2 % (0-4.5); HEMATOCRIT 43.4 % (35.4-49); HEMOGLOBIN 14.4 GM/dL (11.7-16.9); MCH 29.3 pg (25.7-33.7); MCHC 33.3 g/dl (32.0-35.9); MEAN CELL VOLUME 88.1 fl (80-96); MONO % 10.3 % (3.8-10.2); NEUT % 61.9 % (42.8-82.8); PLATELET COUNT 191 K/MM3 (134-434); RBC 4.92 M/mm3 (4.00-5.60); RDW 14.4 % (11.9-15.9); WHITE BLOOD COUNT 8.1 K/mm3 (4.0-10.0)
[2019-05-08] MEDS ORDERED: methylPREDNISolone NA SUCC 125 MG/2 ML VIAL ONE ×2 (13:45→13:46)
[2019-05-08 14:22] LABS: ALBUMIN 3.6 g/dl (3.4-5.0); ALK PHOS 66 U/L (45-117); ANION GAP 4 MMOL/L (8-16); BILIRUBIN,TOTAL 0.2 mg/dL (0.2-1); BLOOD UREA NITROGEN 17.6 mg/dL (7-18); CALCIUM 8.9 mg/dL (8.5-10.1); CHLORIDE 108 mmol/L (98-107); CO2 27 mmol/L (21-32); GLUCOSE,RANDOM 110 mg/dL (74-106); POTASSIUM 4.5 mmol/L (3.5-5.1); SGOT/AST 29 U/L (15-37); SGPT/ALT 32 U/L (13-61); SODIUM 139 mmol/L (136-145); TOT PROT 7.6 g/dl (6.4-8.2)
--- NOTE | 2019-05-08 14:33 | PDOC ---
Documentation entered by Tim Duran SCRIBE, acting as scribe for Shine Pierre MD. Shine Pierre MD: This documentation has been prepared by the Roger yoo Nirvannie, SCRIBE, under my direction and personally reviewed by me in its entirety. I confirm that the documentation accurately reflects all work, treatment, procedures, and medical decision making performed by me. Attending Attestation - Resident Resident Name: PanterachelseaNicolás - ED Attending Attestation I have performed the following: I have examined & evaluated the patient, The case was reviewed & discussed with the resident, I agree w/resident's findings & plan, Exceptions are as noted - HPI HPI: 05/08/19 13:18 The patient is a 53 year old male, with a significant past medical history of asthma (one exacerbation per year), HIV (intermittently compliant with HAART, CD4 in 300s most recently), IVDA, who presents to the emergency department with 4 days of progressively worsening productive cough with green phlegm, sore throat, fevers, chills, and chest discomfort. As per patient, patient he was being evaluated in his PCPs office when he was short of breath, prompting his arrival to the ED. Patient notes using his rescue inhaler more frequently over the course of the past 4 days and that his symptoms are similar to previous exacerbations. Patient is up to date with the flu shot. Patient has been noncompliant with his HIV medications over the course of 3 days secondary to sore throat. He denies any recent nausea, vomiting, diarrhea or constipation. He denies any recent dysuria, frequency, urgency or hematuria. Denies headache, focal weakness /numbness, dizziness. Allergies: NKdA Primary Care Physician: Dr. Aj - Physicial Exam PE: 05/08/19 14:20 GENERAL: Awake, alert, and fully oriented, in no acute distress. Chronically ill appearing. EYES: PERRLA, EOMI, sclera anicteric, conjunctiva clear ENT: Oropharynx clear without exudates. Mild posterior OP erythema w/o exudates. Moist mucosa NECK: Normal ROM, supple, no lymphadenopathy, JVD, or masses LUNGS: Decreased L sided BS at base, +mild diffuse wheezes, and no crackles HEART: Regular rate and rhythm, normal S1 and S2, no murmurs, rubs or gallops ABDOMEN: Soft, nontender, normoactive bowel sounds. No guarding, no rebound. No masses EXTREMITIES: Normal range of motion, no edema. No cords, erythema, or tenderness. WWP NEUROLOGICAL: Normal speech, cranial nerves intact, 5/5 strength in all 4 extremities, normal sensation to light touch in all 4 extremities, normal cerebellar exam, normal gait SKIN: Warm, Dry, normal turgor, no rashes or lesions noted. - Medical Decision Making 05/08/19 14:31 53-year-old male with history of HIV, asthma presents the emergency department with cough, shortness of breath, chest tightness. Patient sent in for evaluation to rule out pneumonia. Plan: -labs -CXR -flu swab -rectal temp -reassess 05/08/19 16:46 Labs, CXR wnl PT feeling much better after nebs and steroids. ADmits to running out of ventolin Ambulatory sat >97% Eager for DC Plan to DC with outpt course prednisone and ventolin refill I discussed the physical exam findings, ancillary test results and final diagnoses with the patient. I answered all of the patient's questions. The patient was satisfied with the care received and felt comfortable with the discharge plan and treatment plan. The patient will call their primary care physician within 24 hours to arrange follow-up and will return to the Emergency Department with any new, persistent or worsening symptoms. Heart Score/ECG Review #1 05/08/19 14:33 Twelve-lead EKG was performed and reviewed by me. Sinus rhythm, rate 77. Normal axis. No ST elevations.
--- NOTE | 2019-05-08 14:41 | EKG ---
Test Reason : Blood Pressure : / mmHG Vent. Rate : 077 BPM Atrial Rate : 077 BPM P-R Int : 110 ms QRS Dur : 086 ms QT Int : 358 ms P-R-T Axes : 057 070 036 degrees QTc Int : 405 ms SINUS RHYTHM WITH SHORT ME POSSIBLE LEFT ATRIAL ENLARGEMENT NONSPECIFIC T WAVE ABNORMALITY ABNORMAL ECG WHEN COMPARED WITH ECG OF 26-DEC-2017 12:50, NONSPECIFIC T WAVE ABNORMALITY NOW EVIDENT IN ANTEROLATERAL LEADS Confirmed by Diego Tate MD ([id number]) on 05/08/2019 2:40:44 PM Referred By: Confirmed By:Diego Tate MD
[2019-05-08 17:48] VITALS: BP 130/74; PULSE 77; TEMP 98.6
== END 2019-05-08 17:52 | disposition home or self-care (01) ==
LOC: JER 11:11
DX: J45.909 Unspecified asthma, uncomplicated (principal); Z87.891 Personal history of nicotine dependence; Z21 Asymptomatic human immunodeficiency virus [HIV] infection status
CPT/HCPCS: 36415; 71046-TC-FY; 80053; 84484; 85025; 87804; 93005; 93010; 99284-25